=== PATIENT | male | born 1975 | race Caucasian/White ===

== ENCOUNTER 2017-11-01 18:14 | Emergency (ER) | payer SELFPAY ==
--- NOTE | 2017-11-01 19:50 | NUR ---
PATIENT CALLED TO BE TRIAGE NO RESPONSE PATIENT LEFT WITHOUT BEING SEEN BY DR. BAXTER. NO FURTHER CARE PROVIDED FOR PATIENT.
== END 2017-11-01 19:50 | disposition left against medical advice (07) ==
LOC: MED 18:14
DX: M79.643 Pain in unspecified hand (principal); Z53.21 Procedure and treatment not carried out due to patient leaving prior to being seen by health care provider

== ENCOUNTER 2018-01-19 19:04 | Emergency (ER) | payer OTHER ==
[~2018-01-19] VITALS: Ht 180.3 cm; Wt 81.6 kg
[2018-01-19 19:06] VITALS: BP 176/117
--- NOTE | 2018-01-19 19:10 | NUR ---
42 Y/O M W/C/O CHEST SHARP/PRESSURE PAIN THAT RADIATES TO R ARM X THIS AFTERNOON AROUND 1200 WORSENING THE LAST 1 HOUR. HX DM, KIDNEY STONES, HTN. PT ON MONITOR, EMT PERFORMING AN EKG. ER MD MADE AWARE.
[2018-01-19] MEDS ORDERED: ASPIRIN 325 MG TAB PO ONE (19:25)
[2018-01-19] MEDS ORDERED: MORPHINE SULFATE 4 MG/ML SYR IVP ONE (19:25)
[2018-01-19] MEDS ORDERED: ASPIRIN 325 MG TAB ONE (19:25)
--- NOTE | 2018-01-19 19:25 | NUR ---
URMILA GARSIA AT BEDSIDE EVALUATING PT.
--- NOTE | 2018-01-19 19:35 | NUR ---
Patient to be transferred to [facility]. Is being transferred due to acute [place]. Receiving facility has accepting physician and available space. ER physician has signed transfer form. Patient or responsible green party has agreed to transfer and signed form. Patient belongings inventoried and will be sent with patient. Copy of nursing notes, lab reports, EKG, Physicians Orders and X-rays to be sent with patient. Report called to dior shay rn, by dr spangler at receiving facility. [facility] 911 transfer ambulance service has been called for transfer. ETA is 911 call.
--- NOTE | 2018-01-19 19:50 | NUR ---
pt transfered to [facility] by [facility].
[2018-01-19 19:51] VITALS: BP 166/108
[2018-01-19 20:05] LABS: BASOPHILS # (AUTO) 0.1 K/uL (0.00-0.22); BASOPHILS % (AUTO) 1.1 % (0.0-2.0); EOSINOPHILS # (AUTO) 0.2 K/uL (0-0.4); EOSINOPHILS % (AUTO) 1.6 % (0.0-4.0); HEMATOCRIT 43.6 % (36-52); HEMOGLOBIN 14.5 g/dL (12.0-18.0); LYMPHOCYTES # (AUTO) 1.7 K/uL (2.0-11.5); LYMPHOCYTES % (AUTO) 14.3 % (20.5-51.1); MEAN CORPUSCULAR HEMOGLOBIN 28 pg (27-31); MEAN CORPUSCULAR HGB CONC 33 g/dL (33-37); MEAN CORPUSCULAR VOLUME 83.5 fL (80-94); MONOCYTES # (AUTO) 0.8 K/uL (0.8-1.0); MONOCYTES % (AUTO) 6.5 % (1.7-9.3); NEUTROPHILS # (AUTO) 9.2 K/uL (1.8-7.7); NEUTROPHILS % (AUTO) 76.5 % (42.2-75.2); PLATELET COUNT (AUTO) 229 K/uL (140-450); RED BLOOD CELL COUNT(AUTO) 5.22 MIL/uL (4.20-6.10); RED CELL DISTRIBUTION WIDTH 12.5 % (11.6-13.7)
[2018-01-19 20:20] LABS: CHOL/HDL RATIO 5.4 (1-4.5)
[2018-01-19 20:25] LABS: ALBUMIN 3.3 g/dL (3.4-5.0); ANION GAP 14.4 (8-16); CARBON DIOXIDE 22.3 mmol/L (21-32); CREATININE 1.3 mg/dL (0.7-1.3); POTASSIUM 3.7 mmol/L (3.5-5.1); TOTAL BILIRUBIN 0.5 mg/dL (0.0-1.0)
== END 2018-01-19 19:50 | disposition short-term general hospital (02) ==
LOC: MED 19:04
DX: I21.9 Acute myocardial infarction, unspecified (principal); I10 Essential (primary) hypertension; E11.9 Type 2 diabetes mellitus without complications; F17.200 Nicotine dependence, unspecified, uncomplicated
CPT/HCPCS: 36415; 71045; 80053; 80061; 83880; 84484; 85025; 85379; 93005; 96374; 99291; J2270; Q0092

== ENCOUNTER 2018-04-27 00:41 | Emergency (ER) | payer OTHER ==
[~2018-04-27] VITALS: Ht 180.3 cm; Wt 83.9 kg
--- NOTE | 2018-04-27 00:41 | NUR ---
Patient [facility] for pre-booking medical evaluation transferred to [facility]. RN evaluating patient at bedside.
[2018-04-27 00:42] VITALS: BP 134/77
[2018-04-27] MEDS ORDERED: NACL 0.9% 1,000 ML IV ONE (01:00)
[2018-04-27] MEDS ORDERED: INSULIN REGULAR, HUMAN 100 UNIT/ML VIAL IVP ONE (01:00)
[2018-04-27 01:31] LABS: BASOPHILS # (AUTO) 0.1 K/uL (0.00-0.22); EOSINOPHILS # (AUTO) 0.4 K/uL (0-0.4); EOSINOPHILS % (AUTO) 3.7 % (0.0-4.0); HEMATOCRIT 39.1 % (36-52); HEMOGLOBIN 13.8 g/dL (12.0-18.0); LYMPHOCYTES # (AUTO) 2.1 K/uL (2.0-11.5); LYMPHOCYTES % (AUTO) 21.2 % (20.5-51.1); MEAN CORPUSCULAR HEMOGLOBIN 28 pg (27-31); MEAN CORPUSCULAR HGB CONC 35 g/dL (33-37); MEAN CORPUSCULAR VOLUME 79.7 fL (80-94); MONOCYTES # (AUTO) 0.7 K/uL (0.8-1.0); MONOCYTES % (AUTO) 6.8 % (1.7-9.3); NEUTROPHILS # (AUTO) 6.7 K/uL (1.8-7.7); NEUTROPHILS % (AUTO) 67.3 % (42.2-75.2); PLATELET COUNT (AUTO) 187 K/uL (140-450); RED BLOOD CELL COUNT(AUTO) 4.91 MIL/uL (4.20-6.10)
[2018-04-27 01:48] LABS: ALBUMIN 3.9 g/dL (3.4-5.0); ANION GAP 10.2 (8-16); CREATININE 1.4 mg/dL (0.7-1.3); POTASSIUM 4.2 mmol/L (3.5-5.1); TOTAL BILIRUBIN 0.4 mg/dL (0.0-1.0)
[2018-04-27 03:00] VITALS: BP 126/71
--- NOTE | 2018-04-27 03:00 | NUR ---
Patient discharged with v/s stable. Written and verbal after care instructions given and explained. Patient verbalized understanding. Police with in custody. All questions addressed prior to discharge. Advised to follow up with PMD.
== END 2018-04-27 02:44 ==
LOC: MED 00:41
DX: E11.65 Type 2 diabetes mellitus with hyperglycemia (principal); I25.2 Old myocardial infarction; I10 Essential (primary) hypertension; Z95.0 Presence of cardiac pacemaker; Z79.4 Long term (current) use of insulin; Z87.442 Personal history of urinary calculi; Z95.1 Presence of aortocoronary bypass graft
CPT/HCPCS: 36415; 80053; 81002; 82948; 85025; 96361; 96374; 99284; J1815; J7030

== ENCOUNTER 2019-07-06 02:34 | Emergency (ER) | payer OTHER ==
[~2019-07-06] VITALS: Ht 180.3 cm; Wt 81.6 kg
[2019-07-06 02:35] VITALS: BP 161/90
[2019-07-06] MEDS ORDERED: MORPHINE SULFATE 4 MG/ML SYR IM ONE (02:55)
[2019-07-06 03:20] VITALS: BP 153/87
== END 2019-07-06 03:20 | disposition home or self-care (01) ==
LOC: MED 02:34
DX: H92.01 Otalgia, right ear (principal); F17.210 Nicotine dependence, cigarettes, uncomplicated; I25.2 Old myocardial infarction; E11.9 Type 2 diabetes mellitus without complications; I10 Essential (primary) hypertension; Z95.0 Presence of cardiac pacemaker; Z90.49 Acquired absence of other specified parts of digestive tract; Z98.890 Other specified postprocedural states; X04.XXXA Exposure to ignition of highly flammable material, initial encounter; Y92.89 Other specified places as the place of occurrence of the external cause; Y93.89 Activity, other specified; Y99.8 Other external cause status
CPT/HCPCS: 96372; 99283; J2270

== ENCOUNTER 2019-08-28 20:13 | Emergency (ER) | payer OTHER ==
[~2019-08-28] VITALS: Ht 174 cm; Wt 81.2 kg
[2019-08-28 20:31] VITALS: BP 175/91
--- NOTE | 2019-08-28 20:38 | NUR ---
PT TAKEN TO BED 11
--- NOTE | 2019-08-28 20:49 | NUR ---
44 Y/O MALE PRESENTS TO ED, C/O OF RIGHT SHOULDER PAIN. PT STATES PAIN STARTED 1 WEEK AGO. PT WAS LIFTING TODAY AND HEARD A POPPING SOUND; PAIN WORSENED 9/10. PT STATES HAVING TINGLING SENSATION ON LEFT ARM. LIMITED ROM ON AFFECTED EXTREMITY ALONG WITH POOR NATURALIST STRENGTH. BILAT STRONG RADIAL PULSES. ERMD AWARE. WILL CONTINUE TO MONITOR.
[2019-08-28] MEDS ORDERED: KETOROLAC 60 MG/2 ML VIAL IM ONE (21:10)
[2019-08-28] MEDS ORDERED: MORPHINE SULFATE 4 MG/ML SYR IM ONE (21:25)
--- NOTE | 2019-08-28 21:33 | NUR ---
SLING WAS PLACED TO IMOBOLIZE PTS LEFT SHOULDER. PTS PMSC WNL.
[2019-08-28 21:54] VITALS: BP 173/76
--- NOTE | 2019-08-28 21:54 | NUR ---
PT DISCHARGED WITH PAPERWORK. RX ЕЛЕНА EDUCATED PT REGARDING MEDICATION AND S/E. EDUCATED PT REGARDING D/C DIAGNOSIS AND INSTRUCTIONS. PT VERBALIZED UNDERSTANDING OF TEACHING. PROVIDED PT WITH ARM SLING. TOLD PT TO FOLLOW UP WITH PCP AND WHEN TO RETURN TO ED. PT VSS. ALL QUESTIONS ANSWERED.
== END 2019-08-28 21:54 | disposition home or self-care (01) ==
LOC: MED 20:13
DX: S46.812A Strain of other muscles, fascia and tendons at shoulder and upper arm level, left arm, initial encounter (principal); F17.200 Nicotine dependence, unspecified, uncomplicated; I25.2 Old myocardial infarction; E11.9 Type 2 diabetes mellitus without complications; I10 Essential (primary) hypertension; Z95.0 Presence of cardiac pacemaker; X58.XXXA Exposure to other specified factors, initial encounter; Y93.89 Activity, other specified; Y92.89 Other specified places as the place of occurrence of the external cause; Y99.8 Other external cause status
CPT/HCPCS: 73030; 96372; 99283; J2270; Q0092; J1885

== ENCOUNTER 2021-11-26 00:50 | Emergency (ER) | payer OTHER ==
[~2021-11-26] VITALS: Ht 180.3 cm; Wt 77.1 kg
--- NOTE | 2021-11-26 00:50 | NUR ---
PT DEAN ORDAZ, PREBOOK. TAKEN TO CHAIR
[2021-11-26 00:56] VITALS: BP 154/99
--- NOTE | 2021-11-26 01:06 | NUR ---
Dr. Chino examining patient.
[2021-11-26] MEDS ORDERED: INSULIN LANTUS 100 UNITS/ML 10 ML VIAL SUBQ ONE (01:10)
[2021-11-26] MEDS ORDERED: NACL 0.9% 1,000 ML IV ONE ×2 (01:10)
--- NOTE | 2021-11-26 01:41 | NUR ---
46 MALE BIB [place] [employer] FOR PRE BOOK. BLOOD SUGAR WAS 398. PT DENIES ANY PAIN MEDHX: DM, DEFIB, HTN NKA
[2021-11-26] MEDS ORDERED: INSULIN REGULAR, HUMAN 100 UNIT/ML VIAL IV ONE (02:50)
[2021-11-26] MEDS ORDERED: INSULIN REGULAR, HUMAN 100 UNIT/ML VIAL SUBQ ONE (03:40)
[2021-11-26 03:45] VITALS: BP 154/99
--- NOTE | 2021-11-26 03:45 | NUR ---
Patient discharged with v/s stable. Written and verbal after care instructions given and explained. Patient verbalized understanding. Ambulatory with in custody. All questions addressed prior to discharge. Advised to follow up with PMD. Pt in custody of PD. BGL STABLE, VSS, A/OX4, AMBULATORY, UNLABORED BREATHING.
== END 2021-11-26 03:45 | disposition home or self-care (01) ==
LOC: MED 00:50
DX: I11.9 Hypertensive heart disease without heart failure (principal); E11.65 Type 2 diabetes mellitus with hyperglycemia; Z87.442 Personal history of urinary calculi; Z02.89 Encounter for other administrative examinations
CPT/HCPCS: 96360; 96372; 99284; J1815; J7030